=== PATIENT | female | born 1950 | race Caucasian/White ===

== ENCOUNTER 2018-08-30 11:56 | Inpatient (IN) | payer OTHER, MEDICARE ==
[~2018-08-30] VITALS: Ht 165.1 cm; Wt 95.5 kg
[2018-08-30] VITALS (7 sets, daily range): BP systolic 100–106; BP diastolic 56–68
[2018-08-30 12:39] LABS: BASOPHILS % (AUTO) 0.7 % (0-1); EOSINOPHILS # (AUTO) 0.2 X10'3 (0-0.9); EOSINOPHILS % (AUTO) 2.5 % (0-6); HEMATOCRIT 41.7 % (35.0-45.0); HEMOGLOBIN 14.5 g/dl (12.0-16.0); LYMPHOCYTES # (AUTO) 1.9 X10'3 (1.1-4.8); LYMPHOCYTES % (AUTO) 31.8 % (21-51); MEAN CORPUSCULAR HEMOGLOBIN 30.2 PG (27.0-31.0); MEAN CORPUSCULAR HGB CONC 34.8 g/dL (33.0-36.5); MEAN CORPUSCULAR VOLUME 86.6 FL (78-98); MEAN PLATELET VOLUME 7.6 FL (7.4-10.4); MONOCYTES # (AUTO) 0.5 X10'3 (0-0.9); MONOCYTES % (AUTO) 8.9 % (2-12); NEUTROPHILS # (AUTO) 3.4 X10'3 (1.8-7.7); NEUTROPHILS % (AUTO) 56.1 % (42-75); PLATELET COUNT 200 X10'3 (140-440); RED BLOOD COUNT 4.81 X10'6 (4.20-5.60); RED CELL DISTRIBUTION WIDTH 12.8 % (11.5-14.5)
[2018-08-30 12:42] LABS: CLARITY,URINE CLOUDY (Clear); COLOR,URINE YELLOW (Yellow); GLUCOSE, URINE NEGATIVE (Neg); KETONES,URINE NEGATIVE (Neg); LEUKOCYTE ESTERASE ,URINE MODERATE (Neg); NITRITES, URINE NEGATIVE (Neg); OCCULT BLOOD,URINE MODERATE (Neg); PH,URINE 6.5 (4.8-8.0); PROTEIN,URINE NEGATIVE (Neg)
[2018-08-30 12:43] LABS: UA COLLECTION TYPE CLN CATCH MIDSTREAM
[2018-08-30 12:50] LABS: SQUAMOUS EPITHELIAL CELL,UR MANY /LPF (FEW)
[2018-08-30 12:51] LABS: BACTERIA,URINE 2+ /HPF (Neg)
[2018-08-30 12:53] LABS: RBC,URINE 20-50 /HPF (0-2); WBC CLUMPS,URINE FEW /HPF (NEGATIVE); WBC,URINE 20-30 /HPF (0-4)
[2018-08-30 12:55] LABS: ALANINE AMINOTRANSFERASE 32 U/L (12-78); ALBUMIN 3.8 G/DL (3.4-5.0); ALBUMIN/GLOBULIN RATIO 1.2 (1.1-1.5); ALKALINE PHOSPHATASE 103 IU/L (46-116); ANION GAP 7 (8-16); ASPARTATE AMINO TRANSFERASE 21 U/L (10-37); BILIRUBIN,TOTAL 0.7 MG/DL (0.1-1.0); BLOOD UREA NITROGEN 18 MG/DL (7-18); BUN/CREATININE RATIO 22.2 (6.6-38.0); CHLORIDE 103 MMOL/L (99-107); CREATININE 0.81 MG/DL (0.40-0.90); GLUCOSE 102 MG/DL (70-104); POTASSIUM 3.8 MMOL/L (3.5-5.1); SODIUM 138 MMOL/L (135-145); TOTAL CARBON DIOXIDE 28.3 MMOL/L (24-32); TOTAL PROTEIN 7.1 G/DL (6.4-8.2); eGFR 70 ML/MIN
[2018-08-30 12:56] LABS: PARTIAL THROMBOPLASTIN TIME 27 SECONDS (22-32); PROTHROMBIN TIME 9.8 SECONDS (9.0-12.0)
[2018-08-30] MEDS ORDERED: ketorolac tromethamine 15mg/ml inj. IM ONE (13:55)
[2018-08-30] MEDS ORDERED: CefTRIAXone 2gm/D5W 50ml 50 ML IV ONE (14:50)
[2018-08-30] MEDS ORDERED: normal saline 1000ML IV soln IVB ONE (14:50)
[2018-08-30] MEDS ORDERED: ketorolac trometh. 30mg/ml inj. IV ONE (14:50)
[2018-08-30] MEDS ORDERED: ondansetron/PF 4mg/2ml inj IV ONE ×2 (14:50→16:50)
[2018-08-30 15:03] LABS: CLARITY,URINE SLIGHTLY CLOUDY (Clear); COLOR,URINE YELLOW (Yellow); GLUCOSE, URINE NEGATIVE (Neg); KETONES,URINE NEGATIVE (Neg); LEUKOCYTE ESTERASE ,URINE SMALL (Neg); NITRITES, URINE NEGATIVE (Neg); OCCULT BLOOD,URINE MODERATE (Neg); PROTEIN,URINE NEGATIVE (Neg); UROBILINOGEN,URINE 0.2 E.U/dL (0.2-1.0)
[2018-08-30 15:04] LABS: UA COLLECTION TYPE CLN CATCH MIDSTREAM
[2018-08-30 15:11] LABS: BACTERIA,URINE 1+ /HPF (Neg); MUCUS STRANDS FEW /LPF (Neg); SQUAMOUS EPITHELIAL CELL,UR MODERATE /LPF (FEW); WBC,URINE 0-4 /HPF (0-4)
[2018-08-30] MEDS ORDERED: fentaNYL/PF 50MCG/1 ML 2ML syringe IV ONE (15:30)
[2018-08-30] MEDS ORDERED: mag hydrox/Alum hydrox/simeth 30ml oral suspension PO PRN (16:50)
[2018-08-30] MEDS ORDERED: ondansetron/PF 4mg/2ml inj IV PRN ×2 (16:50→22:25)
[2018-08-30] MEDS ORDERED: morphine 2 MG/ML inj. syringe IV PRN (16:50)
[2018-08-30] MEDS ORDERED: HYDROcodone/acetaminophen 10/325mg tab PO PRN (16:50)
[2018-08-30] MEDS ORDERED: HYDROcodone/acetaminophen 5mg/325mg tablet PO PRN (16:50)
[2018-08-30] MEDS ORDERED: magnesium hydroxide 30ml (MOM) UD suspension PO PRN (16:50)
[2018-08-30] MEDS ORDERED: acetaminophen 325mg tablet PO PRN ×2 (16:50)
[2018-08-30] MEDS ORDERED: morphine 4 MG/ML inj SYRINge IV ONE (16:50)
[2018-08-30] MEDS: normal saline 1000ml 1,000 ML IV SCH (17:11)
[2018-08-30] MEDS: LIDOcaine 2% (20mg/ml) 5ml vial IV ONE ×2 (17:23→17:57)
[2018-08-30] MEDS ORDERED: IRBE300T19 PO (17:33)
[2018-08-30] MEDS ORDERED: IBUP-1986 PO (17:33)
--- NOTE | 2018-08-30 17:58 | NUR ---
dr. stratton infused the xyocaine 2% 5ml vial at 1745
[2018-08-30] MEDS: morphine 2 MG/ML inj. syringe IV PRN (18:44)
--- NOTE | 2018-08-30 18:45 | NUR ---
pt was up to the br, c/o needed to void urgently. She c/o being very cold. No fever noted. Covered with blankets. Adm morphine for pain.
--- NOTE | 2018-08-30 18:54 | NUR ---
SURGICAL CREW SAID TO EXPEXT THEM AROUND 2029; SURGEON WAS JUST IN TO VISIT WITH THE PATIENT.
[2018-08-30] MEDS ORDERED: HYDROmorphone 1 mg/ml syringe IV STA (19:16)
[2018-08-30] MEDS: lactobacillus rhamnosus 10,000 MMU CELLS/CAPSULE PO SCH (20:00)
--- NOTE | 2018-08-30 20:29 | NUR ---
EMESIS X3.
[2018-08-30] MEDS ORDERED: tamsulosin 0.4mg capsule PO SCH (21:00)
[2018-08-30] MEDS ORDERED: dexamethasone sod phosphate 10mg/ml inj ONE (21:49)
[2018-08-30] MEDS ORDERED: ondansetron/PF 4mg/2ml inj ONE (21:49)
[2018-08-30] MEDS ORDERED: sevoflurane 250ml liquid IH ONE (21:49)
[2018-08-30] MEDS ORDERED: propofol inj 20 ML IV ONE (21:52)
[2018-08-30] MEDS ORDERED: fentaNYL/PF 50MCG/1 ML 2ML syringe ONE (21:53)
[2018-08-30] MEDS ORDERED: ringers solution, lacted 1,000 ML IV SCH (22:21)
[2018-08-30] MEDS ORDERED: meperidine/PF 25mg/ml syringe IV PRN (22:25)
[2018-08-30] MEDS ORDERED: proCHLORperazine 10 MG/2 ml inj IV PRN (22:25)
[2018-08-30] MEDS ORDERED: HYDROmorphone inj. 0.5 MG/0.5 ML DISP.SYRIN IV PRN ×2 (22:25)
--- NOTE | 2018-08-30 22:39 | NUR ---
Received from OR via , accompanied by DR. CLARK, Anesthesiologist and report given by Anesthesiolgist. S/P CYSTO W/ STONE EXTRACTION, RT. URETERAL STENT PLACEMENT PER DR. DOMINGUEZ. PT. AWAKE, ALERT. RESPS. EVEN & UNLABORED. " FEEL CONFUSED", REASSURED. RT. AC IV PATENT.
--- NOTE | 2018-08-30 23:00 | NUR ---
C/O NAUSEA. MEDICATED PER ORDER. ON BEDPAN " FEEL LIKE I NEED TO GO" REASSURED.
--- NOTE | 2018-08-30 23:35 | NUR ---
Report called to receiving nurse, ALFRED, RN . Transferred via BED. Belongings W/ FAMILY. PT. AWAKES QUICKLY TO NAME, A XO X 4. APPROP. RESPS. EVEN & UNLABORED. DENIES PAIN. TAKING ICE CHIPS WITHOUT UPSET. RT. AC IV PATENT. PT. REASSURED. . Special Issues communicated to receiving nurse.
--- NOTE | 2018-08-30 23:36 | NUR ---
Patient in room [facility]. I have received report from FAUSITNO Grace and had the opportunity to ask questions and assume patient care.
[2018-08-31] VITALS (8 sets, daily range): BP systolic 88–120; BP diastolic 50–64
[2018-08-31] MEDS: normal saline 1000ml 1,000 ML IV SCH ×2 (00:43→08:17)
[2018-08-31] MEDS: morphine 2 MG/ML inj. syringe IV PRN (00:49)
[2018-08-31 05:52] LABS: BASOPHILS % (AUTO) 0.1 % (0-1); EOSINOPHILS % (AUTO) 0 % (0-6); HEMATOCRIT 38.5 % (35.0-45.0); LYMPHOCYTES # (AUTO) 0.4 X10'3 (1.1-4.8); LYMPHOCYTES % (AUTO) 2.1 % (21-51); MEAN CORPUSCULAR HEMOGLOBIN 29.8 PG (27.0-31.0); MEAN CORPUSCULAR HGB CONC 33.8 g/dL (33.0-36.5); MEAN PLATELET VOLUME 7.9 FL (7.4-10.4); MONOCYTES # (AUTO) 0.5 X10'3 (0-0.9); MONOCYTES % (AUTO) 2.8 % (2-12); NEUTROPHILS # (AUTO) 17.5 X10'3 (1.8-7.7); PLATELET COUNT 131 X10'3 (140-440); RED BLOOD COUNT 4.37 X10'6 (4.20-5.60); RED CELL DISTRIBUTION WIDTH 12.9 % (11.5-14.5); WHITE BLOOD COUNT 18.4 X10'3 (4.5-11.0)
[2018-08-31 06:01] LABS: ALBUMIN 2.9 G/DL (3.4-5.0); ANION GAP 10 (8-16); BLOOD UREA NITROGEN 17 MG/DL (7-18); CALCIUM 8.3 MG/DL (8.5-10.1); CHLORIDE 108 MMOL/L (99-107); GLUCOSE 159 MG/DL (70-104); SODIUM 142 MMOL/L (135-145); TOTAL CARBON DIOXIDE 23.9 MMOL/L (24-32); eGFR 55 ML/MIN
[2018-08-31] MEDS ORDERED: potassium Cl 40MEQ/NS 500ml 500 ML IV PRN ×2 (06:25)
[2018-08-31] MEDS ORDERED: magnesium Cl slow-release 64mg tablet PO PRN (06:25)
[2018-08-31] MEDS ORDERED: magnesium 4gm in 100ml NS 100 ML IV PRN (06:25)
[2018-08-31] MEDS ORDERED: potassium Cl 20 mEq SR tablet PO PRN ×2 (06:25)
--- NOTE | 2018-08-31 06:39 | NUR ---
Problems reprioritized. Patient report given, questions answered & plan of care reviewed with FAUSTINO Mcdonald.
--- NOTE | 2018-08-31 06:48 | NUR ---
Received report from FAUSTINO Cage. Patient is awake and alert on room air, in no apparent distress. Visitor at bedside. Call light and items of frequent use within reach. Will continue to monitor.
[2018-08-31] MEDS ORDERED: CefTRIAXone/D5W-Rocephin 1gm 50 ML IV SCH (08:00)
[2018-08-31] MEDS: lactobacillus rhamnosus 10,000 MMU CELLS/CAPSULE PO SCH (08:16)
[2018-08-31] MEDS ORDERED: ibuprofen tablet 400 MG TABLET PO PRN (09:10)
[2018-08-31] MEDS ORDERED: SULF1TAB49 PO (09:13)
[2018-08-31] MEDS ORDERED: TRAM50TA2 PO (09:13)
--- NOTE | 2018-08-31 11:08 | NUR ---
Patient escorted out by PCT via wheelchair. Spouse alongside will be taking her home via private vehicle. Discharge instructions given to patient and spouse. Educated on medications, follow up care and instructions, diet and worsening symptoms. IV taken out. Vital signs stable; Discharged on stable condition.
== END 2018-08-31 11:08 | disposition home or self-care (01) | DRG 661 ==
LOC: ER 11:57 → SUR 3N 16:51
PROVIDERS: ADMIT Internal Medicine; ATTEND Internal Medicine
PROC: 0TC68ZZ Extirpation of Matter from Right Ureter, Via Natural or Artificial Opening Endoscopic (ICD-10-PCS; 2018-08-30)
PROC: 0T768DZ Dilation of Right Ureter with Intraluminal Device, Via Natural or Artificial Opening Endoscopic (ICD-10-PCS; principal; 2018-08-30 21:49)
DX: N13.6 Pyonephrosis (principal); E87.6 Hypokalemia; I10 Essential (primary) hypertension; K57.90 Diverticulosis of intestine, part unspecified, without perforation or abscess without bleeding; K76.0 Fatty (change of) liver, not elsewhere classified; Z87.440 Personal history of urinary (tract) infections; Z85.3 Personal history of malignant neoplasm of breast; Z90.49 Acquired absence of other specified parts of digestive tract; Z90.710 Acquired absence of both cervix and uterus; Z79.899 Other long term (current) drug therapy; Z90.12 Acquired absence of left breast and nipple; Z88.5 Allergy status to narcotic agent
CPT/HCPCS: 96365; 96372; 96375; 99285; Z7506; 36415; 71045; 74176; 76000; 80048; 80053; 81001; 84484; 85025; 85610; 85730; 87070; 87077; 87088; 87186; 93005; A4402; C1769; C2617; G0378; J0696; J0780; J1100; J1170; J1885; J2001; J2270; J2405; J2704; J3010; J7030

== ENCOUNTER 2020-10-02 08:24 | Outpatient (CLI) | payer OTHER, MEDICARE ==
[~2020-10-02] VITALS: Ht 165.1 cm; Wt 102.1 kg
[~2020-10-02 08:24] MED LIST: IBUP-1986 PO; IRBE300T18 PO
[2020-10-02] MEDS ORDERED: normal saline 500ml IV soln 500 ML IV ONE (09:20)
[2020-10-02] MEDS ORDERED: regadenoson 0.4mg/5ml syringe IV ONE (09:20)
[2020-10-02] MEDS ORDERED: nitroGLYCERIN 0.4mg SUBLingual tab SL PRN (09:20)
[2020-10-02] MEDS ORDERED: aminophylline 250mg/10ml inj. IV PRN (09:20)
[2020-10-02 10:01] VITALS: BP 166/85
[2020-10-02 10:13] VITALS: BP_SYST 148; BP_SYST 173; BP_DIAS 105; BP_DIAS 93
[2020-10-02 10:14] VITALS: BP 178/100
[2020-10-02 10:15] VITALS: BP 178/94
[2020-10-02 10:16] VITALS: BP 159/87
[2020-10-02 10:17] VITALS: BP 170/95
== END 2020-10-02 23:59 | disposition home or self-care (01) ==
LOC: RAD 08:24
PROVIDERS: ATTEND Internal Medicine Cardiovascular Disease
DX: R94.30 Abnormal result of cardiovascular function study, unspecified (principal)
CPT/HCPCS: 78452; 93017; A9500; J2785; J7040

== ENCOUNTER 2021-08-11 10:29 | Emergency (ER) | payer OTHER, MEDICARE ==
[~2021-08-11] VITALS: Ht 170.2 cm; Wt 100.0 kg
[2021-08-11 12:09] LABS: BASOPHILS % (AUTO) 0.6 % (0-1); EOSINOPHILS # (AUTO) 0.1 X10'3 (0-0.9); EOSINOPHILS % (AUTO) 1.3 % (0-6); HEMATOCRIT 44.5 % (35.0-45.0); LYMPHOCYTES # (AUTO) 1.3 X10'3 (1.1-4.8); LYMPHOCYTES % (AUTO) 25.6 % (21-51); MEAN CORPUSCULAR HEMOGLOBIN 28.7 PG (27.0-31.0); MEAN CORPUSCULAR HGB CONC 33.8 g/dL (33.0-36.5); MEAN PLATELET VOLUME 7.9 FL (7.4-10.4); MONOCYTES # (AUTO) 0.4 X10'3 (0-0.9); NEUTROPHILS # (AUTO) 3.2 X10'3 (1.8-7.7); NEUTROPHILS % (AUTO) 63.5 % (42-75); PLATELET COUNT 198 X10'3 (140-440); RED BLOOD COUNT 5.24 X10'6 (4.20-5.60); RED CELL DISTRIBUTION WIDTH 12.6 % (11.5-14.5)
[2021-08-11 12:20] LABS: ALANINE AMINOTRANSFERASE 25 U/L (12-78); ALBUMIN 3.6 G/DL (3.4-5.0); ALBUMIN/GLOBULIN RATIO 1.1 (1.1-1.5); ALKALINE PHOSPHATASE 115 IU/L (46-116); ANION GAP 10 (8-16); ASPARTATE AMINO TRANSFERASE 16 U/L (10-37); BILIRUBIN,TOTAL 0.6 MG/DL (0.1-1.0); BLOOD UREA NITROGEN 18 MG/DL (7-18); BUN/CREATININE RATIO 23.1 (6.6-38.0); CALCIUM 9.6 MG/DL (8.5-10.1); CHLORIDE 104 MMOL/L (99-107); CREATININE 0.78 MG/DL (0.40-0.90); GLUCOSE 108 MG/DL (70-104); LIPASE 73 U/L (73-393); MAGNESIUM 2.2 MG/DL (1.5-2.4); POTASSIUM 4.1 MMOL/L (3.5-5.1); SODIUM 140 MMOL/L (135-145); TOTAL CARBON DIOXIDE 26.3 MMOL/L (24-32); eGFR 72 ML/MIN
--- NOTE | 2021-08-11 14:33 | NUR ---
JOSETTE ANGELO AT BEDSIDE.
[2021-08-11 14:39] LABS: CLARITY,URINE CLEAR (Clear); COLOR,URINE YELLOW (Yellow); GLUCOSE, URINE NEGATIVE (Neg); KETONES,URINE NEGATIVE (Neg); LEUKOCYTE ESTERASE ,URINE NEGATIVE (Neg); NITRITES, URINE NEGATIVE (Neg); OCCULT BLOOD,URINE NEGATIVE (Neg); PROTEIN,URINE NEGATIVE (Neg)
[2021-08-11 14:42] LABS: UA COLLECTION TYPE CLN CATCH MIDSTREAM
[2021-08-11 16:08] VITALS: BP 166/96
[2021-08-11] MEDS ORDERED: ketorolac trometh. 30mg/ml inj. IV ONE (16:10)
[2021-08-11] MEDS ORDERED: morphine 4 MG/ML inj SYRINge IV ONE (16:10)
[2021-08-11] MEDS ORDERED: ringers solution, lacted 1,000 ML IV ONE (16:10)
[2021-08-11] MEDS ORDERED: ondansetron/PF 4mg/2ml inj IV ONE (16:15)
--- NOTE | 2021-08-11 16:58 | NUR ---
JOSETTE ANGELO AT BEDSIDE.
[2021-08-11] MEDS ORDERED: FLO0.4C PO (19:21)
[2021-08-11] MEDS ORDERED: OXYC-481 PO (19:21)
[2021-08-11] MEDS ORDERED: KETO10TA2 PO (19:21)
[2021-08-11] MEDS ORDERED: ONDA-103 PO (19:21)
== END 2021-08-11 19:37 | disposition home or self-care (01) ==
LOC: ER 10:30
DX: N20.0 Calculus of kidney (principal); I10 Essential (primary) hypertension; Z79.899 Other long term (current) drug therapy; Z85.3 Personal history of malignant neoplasm of breast
CPT/HCPCS: 36415; 74176; 80053; 81003; 83690; 83735; 85025; 96361; 96374; 96375; 99284; J1885; J2270; J2405; J7120